=== PATIENT | female | born 1935 | race American Indian/Alaskan Native ===

== ENCOUNTER 2019-05-23 06:28 | Emergency (ER) | payer MEDICARE ==
--- NOTE | 2019-05-23 07:18 | Emergency Department Report ---
HPI - General Chief Complaint: Fall Time Seen by Provider: 05/23/19 07:07 - [facility] HPI: Room 5 The patient is a an 83-year-old female present with a chief complaint of head injury after fall. The patient states last night while getting up from her bedside commode she fell landing on her left side striking her head. Patient denies loss of consciousness. Patient currently denies pain ED Past Medical Hx - Past Medical History Previous Medical History?: Yes Hx Hypertension: Yes Hx Heart Attack/AMI: Yes Additional medical history: hypothyroidism, - Surgical History Past Surgical History?: Yes Additional Surgical History: thyroid tumor removal, hysterectomy - Family History Family history: no significant - Social History Smoking Status: Never Smoker Substance Use Type: None - Medications Home Medications: Home Medications Medication Instructions Recorded Confirmed Last Taken Type Acetaminophen [Acetaminophen TAB] 650 mg PO Q4H PRN #60 tablet 12/01/15 Unknown Rx Amoxicillin/K Clav Tab [Augmentin 1 each PO Q12H #8 day 03/05/17 Unknown Rx 875MG TAB] Aspirin [Aspirin EC] 81 mg PO DAILY #30 tablet. 03/05/17 Unknown Rx Pantoprazole [Protonix TAB] 20 mg PO QDAY #30 tablet. 03/05/17 Unknown Rx ED Review of Systems ROS: Stated complaint: FALL Other details as noted in HPI Constitutional: no symptoms reported Eyes: denies: eye pain ENT: denies: throat pain Respiratory: no symptoms reported Cardiovascular: denies: chest pain Endocrine: no symptoms reported Gastrointestinal: denies: abdominal pain Musculoskeletal: denies: back pain Neurological: denies: headache Physical Exam - Physical Exam Vital Signs: Vital Signs 05/23/19 05/23/19 06:30 06:33 Temperature 97.5 F L Pulse Rate 82 78 Respiratory 15 15 Rate Blood Pressure 109/67 Blood Pressure 109/67 [left arm] O2 Sat by Pulse 99 99 Oximetry Physical Exam: GENERAL: The patient is well-developed well-nourished female lying on stretcher not appearing to be in acute distress. [] HEENT: Normocephalic. Extraocular motions are intact. Patient has moist mucous membranes. NECK: Supple. Mild C-spine discomfort to palpation. No axial step-off CHEST/LUNGS: There is no respiratory distress noted. SKIN: There is no rash. There is no edema. There is no diaphoresis. NEURO: The patient is awake, alert, and oriented. The patient is cooperative. The patient has no focal neurologic deficits. The patient has normal speech. Cranial nerves II through XII grossly intact MUSCULOSKELETAL: There is mild mid C-spine tenderness to palpation. There is no evidence of acute injury. ED Course Vital Signs 05/23/19 05/23/19 06:30 06:33 Temperature 97.5 F L Pulse Rate 82 78 Respiratory 15 15 Rate Blood Pressure 109/67 Blood Pressure 109/67 [left arm] O2 Sat by Pulse 99 99 Oximetry ED Medical Decision Making - Radiology Data Radiology results: report reviewed (CT head, CT cervical spine), image reviewed (CT head, CT cervical spine) Findings [facility] [address] [place] [address] Cat Scan Report Signed Patient: NEGRITA THOMSON MR#: [id number] : 1935 Acct:[id number] Age/Sex: 83 / F ADM Date: 05/23/19 Loc: ED Attending Dr: Ordering Physician: ESPERANZA ALANIZ MD Date of Service: 05/23/19 Procedure(s): CT head/brain wo con Accession Number(s): [id number] cc: ESPERANZA ALANIZ MD CT HEAD WITHOUT CONTRAST INDICATION : Headache after fall one day ago. TECHNIQUE: Axial, coronal and sagittal CT imaging was performed from the skull apex through the skull base without contrast. All CT scans at this location are performed using CT dose reduction for ALARA by means of automated exposure control. COMPARISON: CT head without contrast from 03/03/2017. FINDINGS: PARENCHYMA: No mass, midline shift, hemorrhage, extraaxial collection or acute territorial infarction. Age-appropriate atrophy is noted with probable chronic microvascular ischemic changes along the periventricular white matter. VENTRICLES: Prominent secondary to atrophy. No acute abnormality. SOFT TISSUES: No significant abnormality of the included soft tissues/orbits. BONES: No acute osseous abnormality. SINUSES: Extensive sinus disease is again noted. The mastoid air cells are patent. ADDITIONAL FINDINGS: None. IMPRESSION: 1. No acute intracranial abnormality. 2. Additional findings as above. Signer Name: Chidi Bianchi MD Signed: 05/23/2019 8:23 AM Workstation Name: [id number] Transcribed By: SEBASTIAN Dictated By: Chidi Bianchi MD Electronically Authenticated By: Chidi Bianchi MD Signed Date/Time: 05/23/19822 DD/ 0 TD/TT: Findings [facility] [address] [place] [address] Cat Scan Report Signed Patient: NEGRITA THOMSON MR#: [id number] : 1935 Acct:[id number] Age/Sex: 83 / F ADM Date: 05/23/19 Loc: ED Attending Dr: Ordering Physician: ESPERANZA ALANIZ MD Date of Service: 05/23/19 Procedure(s): CT cervical spine wo con Accession Number(s): [id number] cc: ESPERANZA ALANIZ MD CT CERVICAL SPINE WITHOUT CONTRAST INDICATION: Neck pain after fall one day ago. COMPARISON: None available. TECHNIQUE: Axial, coronal and sagittal CT imaging of the cervical spine without contrast was performed. All CT scans at this location are performed using CT dose reduction for ALARA by means of automated exposure control. FINDINGS: VERTEBRAE:No acute fracture. Normal alignment. DISC SPACES: Anterior and interbody fusion appears unremarkable at C5-C6. Multilevel mild discogenic degenerative changes are seen along with moderate degenerative change of the atlantoaxial joint. FACET JOINTS:There is multilevel bilateral facet hypertrophy. CENTRAL CANAL: No central canal stenosis or neural foraminal narrowing. SOFT TISSUES:No significant abnormality. LUNG APICES: No significant abnormality. ADDITIONAL FINDINGS: None IMPRESSION: 1. No acute findings. 2. Additional findings as above. Signer Name: Chidi Bianchi MD Signed: 05/23/2019 8:26 AM Workstation Name: [id number] Transcribed By: MN Dictated By: Chidi Bianchi MD Electronically Authenticated By: Chidi Bianchi MD Signed Date/Time: 05/23/19825 DD/ 2 TD/TT: - Differential Diagnosis Close head injury, intracranial hemorrhage, cervical fracture, cervical str Critical care attestation.: If time is entered above; I have spent that time in minutes in the direct care of this critically ill patient, excluding procedure time. ED Disposition Clinical Impression: Closed head injury, Cervical strain, acute Disposition: DC-01 TO HOME OR SELFCARE Is pt being admited?: No Does the pt Need Aspirin: No Condition: Stable Instructions: Minor Head Injury (ED) Additional Instructions: Return to the emergency department should you develop worsening symptoms, inability to tolerate food or liquids, high fever or any other concerns Referrals: PRIMARY CARE, [Primary Care Provider] - 3-5 Days Time of Disposition: 08:38
--- NOTE | 2019-05-23 08:28 | Cat Scan Report ---
CT HEAD WITHOUT CONTRAST INDICATION : Headache after fall one day ago. TECHNIQUE: Axial, coronal and sagittal CT imaging was performed from the skull apex through the skul l base without contrast. All CT scans at this location are performed using CT dose reduction for ALA RA by means of automated exposure control. COMPARISON: CT head without contrast from 03/03/2017. FINDINGS: PARENCHYMA: No mass, midline shift, hemorrhage, extraaxial collection or acute territorial infarctio n. Age-appropriate atrophy is noted with probable chronic microvascular ischemic changes along the p eriventricular white matter. VENTRICLES: Prominent secondary to atrophy. No acute abnormality. SOFT TISSUES: No significant abnormality of the included soft tissues/orbits. BONES: No acute osseous abnormality. SINUSES: Extensive sinus disease is again noted. The mastoid air cells are patent. ADDITIONAL FINDINGS: None. IMPRESSION: 1. No acute intracranial abnormality. 2. Additional findings as above. Signer Name: Chidi Bianchi MD Signed: 05/23/2019 8:23 AM Workstation Name: [id number]
--- NOTE | 2019-05-23 08:30 | Cat Scan Report ---
CT CERVICAL SPINE WITHOUT CONTRAST INDICATION: Neck pain after fall one day ago. COMPARISON: None available. TECHNIQUE: Axial, coronal and sagittal CT imaging of the cervical spine without contrast was performe d. All CT scans at this location are performed using CT dose reduction for ALARA by means of automat ed exposure control. FINDINGS: VERTEBRAE:No acute fracture. Normal alignment. DISC SPACES: Anterior and interbody fusion appears unremarkable at C5-C6. Multilevel mild discogenic degenerative changes are seen along with moderate degenerative change of the atlantoaxial joint. FACET JOINTS:There is multilevel bilateral facet hypertrophy. CENTRAL CANAL: No central canal stenosis or neural foraminal narrowing. SOFT TISSUES:No significant abnormality. LUNG APICES: No significant abnormality. ADDITIONAL FINDINGS: None IMPRESSION: 1. No acute findings. 2. Additional findings as above. Signer Name: Chidi Bianchi MD Signed: 05/23/2019 8:26 AM Workstation Name: [id number]
[2019-05-23 09:48] VITALS: BP 96/62
== END 2019-05-23 10:05 | disposition home or self-care (01) ==
LOC: ED 06:28
DX: S16.1XXA Strain of muscle, fascia and tendon at neck level, initial encounter (principal); S09.90XA Unspecified injury of head, initial encounter; I10 Essential (primary) hypertension; I25.2 Old myocardial infarction; E03.9 Hypothyroidism, unspecified; Z90.710 Acquired absence of both cervix and uterus; X58.XXXA Exposure to other specified factors, initial encounter; Y93.89 Activity, other specified; Y92.89 Other specified places as the place of occurrence of the external cause; Y99.8 Other external cause status
CPT/HCPCS: 70450; 72125

== ENCOUNTER 2019-06-25 23:13 | Emergency (ER) | payer MEDICARE ==
--- NOTE | 2019-06-25 23:18 | Emergency Department Report ---
ED Fall HPI - General Stated Complaint: SIDE PAIN Time Seen by Provider: 06/25/19 23:15 Source: patient, EMS Mode of arrival: Stretcher Limitations: No Limitations - History of Present Illness Initial Comments: Patient is an 83-year-old female that presents emergency room with complaints of fall and complaining of right rib pain. Patient fell from a standing position at home in her bedroom. Patient denies hitting head. Patient complains of rib pain that was not allowing her to go to sleep. Patient states the pain is severe. Patient denies other pain or injuries. Patient denies hitting head. Report received from EMS. EMS states the family stated that the patient fell and did not hit her head and has been complaining of right rib pain. Per the family the patient is at baseline. 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 denies: headache, neck pain, numbness, weakness, shortness of breath, abdominal pain, hematuria, unable to walk, lightheaded, vertigo, confusion - Related Data Previous Rx's Medication Instructions Recorded Last Taken Type Acetaminophen [Acetaminophen TAB] 650 mg PO Q4H PRN #60 tablet 12/01/15 Unknown Rx Amoxicillin/K Clav Tab [Augmentin 1 each PO Q12H #8 day 03/05/17 Unknown Rx 875MG TAB] Aspirin [Aspirin EC] 81 mg PO DAILY #30 tablet. 03/05/17 Unknown Rx Pantoprazole [Protonix TAB] 20 mg PO QDAY #30 tablet. 03/05/17 Unknown Rx Acetaminophen/Codeine [Tylenol 1 tab PO Q6H PRN #12 tab 06/26/19 Unknown Rx /Codeine # 3 tab] Allergies Allergy/AdvReac Type Severity Reaction Status Date / Time No Known Allergies Allergy Verified 10/04/13 18:50 ED Review of Systems ROS: Stated complaint: SIDE PAIN Other details as noted in HPI Constitutional: denies: chills, fever Eyes: denies: eye pain, eye discharge, vision change ENT: denies: ear pain, throat pain Respiratory: denies: cough, shortness of breath, wheezing Cardiovascular: denies: palpitations Endocrine: no symptoms reported Gastrointestinal: denies: abdominal pain, nausea, diarrhea Genitourinary: denies: urgency, dysuria, discharge Musculoskeletal: denies: back pain, joint swelling, arthralgia Skin: denies: rash, lesions Neurological: denies: headache, weakness, paresthesias Psychiatric: denies: anxiety, depression Hematological/Lymphatic: denies: easy bleeding, easy bruising ED Past Medical Hx - Past Medical History Previous Medical History?: Yes Hx Hypertension: Yes Hx Heart Attack/AMI: Yes Hx Congestive Heart Failure: No Hx Diabetes: No Hx Asthma: No Hx COPD: No Hx Dementia: Yes Additional medical history: hypothyroidism, - Surgical History Past Surgical History?: Yes Additional Surgical History: thyroid tumor removal, hysterectomy - Family History Family history: no significant - Social History Smoking Status: Never Smoker Substance Use Type: None - Medications Home Medications: Home Medications Medication Instructions Recorded Confirmed Last Taken Type Acetaminophen [Acetaminophen TAB] 650 mg PO Q4H PRN #60 tablet 12/01/15 Unknown Rx Amoxicillin/K Clav Tab [Augmentin 1 each PO Q12H #8 day 03/05/17 Unknown Rx 875MG TAB] Aspirin [Aspirin EC] 81 mg PO DAILY #30 tablet. 03/05/17 Unknown Rx Pantoprazole [Protonix TAB] 20 mg PO QDAY #30 tablet. 03/05/17 Unknown Rx Acetaminophen/Codeine [Tylenol 1 tab PO Q6H PRN #12 tab 06/26/19 Unknown Rx /Codeine # 3 tab] ED Physical Exam - General Limitations: No Limitations General appearance: alert, in no apparent distress - Head Head exam: Present: atraumatic, normocephalic - Eye Eye exam: Present: normal appearance - ENT ENT exam: Present: mucous membranes moist - Neck Neck exam: Present: normal inspection - Respiratory Respiratory exam: Present: normal lung sounds bilaterally. Absent: respiratory distress - Cardiovascular Cardiovascular Exam: Present: regular rate, normal rhythm. Absent: systolic murmur, diastolic murmur, rubs, gallop - GI/Abdominal GI/Abdominal exam: Present: soft, normal bowel sounds - Extremities Exam Extremities exam: Present: normal inspection - Back Exam Back exam: Present: normal inspection - Neurological Exam Neurological exam: Present: alert, altered (And O x2.) - Psychiatric Psychiatric exam: Present: normal affect, normal mood - Skin Skin exam: Present: warm, dry, intact, normal color. Absent: rash ED Course Vital Signs 06/25/19 06/25/19 06/25/19 23:20 23:41 23:45 Temperature 97.8 F Pulse Rate 84 82 Respiratory 16 11 L Rate Blood Pressure 129/72 155/68 Blood Pressure 129/74 [Left] O2 Sat by Pulse 100 98 100 Oximetry 06/26/19 06/26/19 06/26/19 00:00 00:15 00:31 Temperature Pulse Rate 93 H 103 H 115 H Respiratory 17 19 20 Rate Blood Pressure 119/71 155/68 155/68 Blood Pressure [Left] O2 Sat by Pulse 93 97 95 Oximetry 06/26/19 06/26/19 06/26/19 00:45 01:00 01:15 Temperature Pulse Rate 117 H 113 H 114 H Respiratory 19 22 16 Rate Blood Pressure 133/83 118/74 118/74 Blood Pressure [Left] O2 Sat by Pulse 96 98 96 Oximetry 06/26/19 01:26 Temperature 98.0 F Pulse Rate Respiratory Rate Blood Pressure Blood Pressure [Left] O2 Sat by Pulse Oximetry - Reevaluation(s) Reevaluation #1: I discussed all results and clinical findings with patient. I discussed plan of care with patient. Patient agrees with plan of care. Patient is stable for discharge. Patient will be discharged home. Patient given discharge instructions. Patient voiced understanding of discharge instructions. 06/26/19 00:33 ED Medical Decision Making - Radiology Data Radiology results: report reviewed, image reviewed interpreted by me: Rib series-4 views INDICATION: rib pain. fall. COMPARISON: Chest x-ray from 03/03/2007 IMPRESSION: No acute osseous or soft tissue abnormality. Clear lungs with normal heart size. - Medical Decision Making Patient is an 83-year-old female that presents emergency room with complaints of rib pain after a fall. Patient complained of right rib pain. Patient states the pain was severe. Patient had an x-ray done which was negative for acute fracture sugars. Patient's chest x-ray done and shows no acute findings on the lung hernandez. Patient stable for discharge. Patient discharged home. - Differential Diagnosis Fall, contusion, sprain, strain, fracture Critical care attestation.: If time is entered above; I have spent that time in minutes in the direct care of this critically ill patient, excluding procedure time. ED Disposition Clinical Impression: Rib pain Fall Qualifiers: Encounter type: initial encounter Qualified Code(s): W19.XXXA - Unspecified fall, initial encounter Rib contusion Qualifiers: Encounter type: initial encounter Laterality: right Qualified Code(s): S20.211A - Contusion of right front wall of thorax, initial encounter Disposition: TO HOME OR SELFCARE Is pt being admited?: No Does the pt Need Aspirin: No Condition: Stable Instructions: Contusion in Adults (ED) Additional Instructions: Patient to follow-up with primary care in 2 to 3 days. Patient to do deep breathing exercises 6 times per hour. Patient to rest. Patient to increase water. Patient to avoid strenuous exercise or heavy lifting until cleared by INJECTION MOLDING MACHINE OPERATOR. Patient to take Tylenol as needed for pain. Patient to take meds as directed. Patient to return to the ER if condition worsens, changes or new symptoms arise. Prescriptions: Acetaminophen/Codeine [Tylenol /Codeine # 3 tab] 1 tab PO Q6H PRN #12 tab PRN Reason: Pain , Severe (7-10) Referrals: NEETA VEGA MD [Primary Care Provider] - 2-3 Days Time of Disposition: 00:36
--- NOTE | 2019-06-25 23:47 | XRay Report ---
Rib series-4 views INDICATION: rib pain. fall. COMPARISON: Chest x-ray from 03/03/2007 IMPRESSION: No acute osseous or soft tissue abnormality. Clear lungs with normal heart size. Signer Name: Gordon Galindo MD Signed: 06/25/2019 11:42 PM Workstation Name: [id number]
== END 2019-06-26 06:22 | disposition home or self-care (01) ==
LOC: ED 23:13
DX: S20.211A Contusion of right front wall of thorax, initial encounter (principal); I10 Essential (primary) hypertension; I25.2 Old myocardial infarction; Z79.899 Other long term (current) drug therapy; Z90.710 Acquired absence of both cervix and uterus; Z98.890 Other specified postprocedural states; W19.XXXA Unspecified fall, initial encounter; Y93.89 Activity, other specified; Y92.092 Bedroom in other non-institutional residence as the place of occurrence of the external cause; Y99.8 Other external cause status
CPT/HCPCS: 71111; 99283